=== PATIENT | male | born 1955 | race Caucasian/White ===

== ENCOUNTER 2018-01-23 14:33 | Emergency (ER) | payer SELFPAY ==
[~2018-01-23] VITALS: Ht 180.3 cm; Wt 95.0 kg
[2018-01-23 14:38] VITALS: BP 134/71; PULSE 89; RESP 21; TEMP 98.1; O2SAT 99
--- NOTE | 2018-01-23 16:07 | RADRPT ---
EXAM DATE/TIME: 01/23/2018 15:25 [place] COMPARISON: No previous studies available for comparison. INDICATIONS : Cough MEDICAL HISTORY : None. SURGICAL HISTORY : None. ENCOUNTER: Initial ACUITY: 1 day PAIN SCORE: 0/10 LOCATION: chest FINDINGS: AP and lateral views of the chest demonstrate the lungs to be symmetrically aerated without evidence of mass, infiltrate or effusion. The cardiomediastinal contours are unremarkable. Osseous structure s are intact. CONCLUSION: No acute disease. Lenin Díaz MD on January 23, 2018 at 16:05 Board Certified Radiologist. This report was verified electronically.
--- NOTE | 2018-01-23 16:33 | PD ---
HPI Chief Complaint: Respiratory Symptoms Time Seen by Provider: 16:30 Travel History International Travel<30 days: No Contact w/Intl Traveler<30days: No Traveled to known affect area: No History of Present Illness HPI 62-year-old male presents to the emergency department with complaint of productive cough with green sputum production, nasal congestion, chest tightness , wheezing, and a little bit of shortness of breath 1 week. Denies sore throat , ear pain. Denies chest pain, fevers, vomiting. Denies hemoptysis. Has been taking Mucinex, [id number] cold and flu medication, and TheraFlu for symptom management. No known aggravating or relieving factors. Symptoms are mild to moderate in severity. Others in his house are sick with similar symptoms. No known allergies. No primary care provider. Denies significant past medical history. Has no other medical complaints. No other modifying factors or associated signs and symptoms. PFSH Social History Tobacco Use: Yes Allergies-Medications (Allergen,Severity, Reaction): Coded Allergies: No Known Allergies (Verified Allergy, Unknown, 01/23/18) Reported Meds & Prescriptions Reported Meds & Active Scripts Active Azithromycin 500 Mg Tab 500 Mg PO DAILY Deltasone (Prednisone) 20 Mg Tab 40 Mg PO DAILY 4 Days START 01/24/2018 Ventolin Hfa 18 GM Inh (Albuterol Sulfate) 90 Mcg/Act Aer 2 Puff INH Q4-6H PRN Tessalon Perles (Benzonatate) 100 Mg Cap 100 Mg PO TID PRN 3 Days Review of Systems Except as stated in HPI: all other systems reviewed are Neg Physical Exam Narrative GENERAL: Well-nourished, well-developed male patient, in no acute distress; afebrile, nontoxic-appearing SKIN: Warm and dry. HEAD: Atraumatic. Normocephalic. EYES: Pupils equal and round. No scleral icterus. No injection or drainage. ENT: Mucosa pink and moist. No erythema or exudates. No uvular edema. No uvular , palatal, or tonsillar deviation. Airway patent. Nares without nasal blood, purulent drainage or septal hematoma. EARS: Bilateral pinnae and external canals appear within normal limits. Bilateral tympanic membranes without erythema, dullness or perforation. NECK: Trachea midline. No lymphadenopathy. CARDIOVASCULAR: Regular rate and rhythm. No murmur appreciated. RESPIRATORY: No accessory muscle use. Lungs with Wheezing throughout to auscultation. Breath sounds equal bilaterally. No retractions or tachypnea. No Audible wheezing noted. GASTROINTESTINAL: Abdomen soft, non-tender, nondistended. Hepatic and splenic margins not palpable. Bowel sounds are active 4 quadrants. MUSCULOSKELETAL: No obvious deformities. No clubbing. No cyanosis. No edema. NEUROLOGICAL: Awake and alert. Oriented 3. No obvious cranial nerve deficits. Motor grossly within normal limits. Normal speech. Moves all extremities. 5/5 strength to all extremities. PSYCHIATRIC: Appropriate mood and affect; insight and judgment normal. Data Data Last Documented VS Vital Signs Date Time Temp Pulse Resp B/P (MAP) Pulse Ox O2 Delivery O2 Flow Rate FiO2 01/23/18 16:24 16 98 Room Air 01/23/18 14:38 98.1 89 134/71 (92) Orders Orders Chest, Ap & Lat (01/23/18 ) Prednisone (Deltasone) (01/23/18 17:00) Albuterol-Ipratropium Neb (Duoneb Neb) (01/23/18 17:00) Ed Discharge Order (01/23/18 17:34) [facility] Medical Decision Making Medical Screen Exam Complete: Yes Emergency Medical Condition: Yes Medical Record Reviewed: Yes Differential Diagnosis Upper respiratory infection, influenza, pneumonia Narrative Course 62-year-old male physical exam and HPI consistent with acute bronchitis. Lungs with wheezing on auscultation throughout. Patient is in no acute distress without retractions or tachypnea. 1632: Chest x-ray concluded: Chest X-Ray 01/23/18 0000 Signed Impressions: Service Date/Time: Tuesday, January 23, 2018 15:25 - CONCLUSION: No acute disease. Lenin Díaz MD Chest x-ray findings discussed with the patient. DuoNeb, Deltasone ordered. 1734: On reexamination patient reports improvement in symptoms. Denies chest tightness or shortness breath. Lungs are clear and equal throughout. Deltasone , azithromycin, Ventolin inhaler, Tessalon Perles prescribed for home. Instructed patient to follow up with primary care provider. Patient verbalizes understanding and agreement with treatment plan. Patient is medically cleared and stable for discharge. Discussed reasons to return to the emergency department. Patient agrees with treatment plan. The patients vital signs are stable and the patient is stable for outpatient follow-up and treatment. Patient discharged home, stable and in no acute distress. Diagnosis Primary Impression: Bronchitis Referrals: Primary Care Physician Patient Instructions: Acute Bronchitis (ED), General Instructions Departure Forms: Tests/Procedures, Work Release Enter return to work date: Jan 24, 2018 Additional Instructions: Use Albuterol inhaler as prescribed Take oral steroids as prescribed and complete full course Use Tessalon Perles as prescribed to decrease coughing spasms [id number] decongestants or antihistamines as directed and as needed for symptom management Your cough can last 4-6 weeks Drink plenty of fluids to prevent dehydration Use hot air humidifier to decrease cough exacerbation Turn off ceiling fans and sleep with head of bed elevated Avoid triggers such as second hand smoke, dust, known allergens Follow-up with your primary care provider Return to the emergency department immediately with worsening of symptoms Med/Other Pt SpecificInfo: Prescription(s) given Scripts Azithromycin (Azithromycin) 500 Mg Tab 500 MG PO DAILY for Infection, #5 TAB 0 Refills Prov: Heidy DowdP 01/23/18 Prednisone (Deltasone) 20 Mg Tab 40 MG PO DAILY for 4 Days, #8 TAB 0 Refills START 01/24/2018 Prov: Heidy DowdP 01/23/18 Albuterol 18 GM Inh (Ventolin Hfa 18 GM Inh) 90 Mcg/Act Aer 2 PUFF INH Q4-6H Y for SOB/WHEEZING, #1 INHALER 0 Refills Prov: Heidy DowdP 01/23/18 Benzonatate (Tessalon Perles) 100 Mg Cap 100 MG PO TID Y for COUGH for 3 Days, CAP 0 Refills Prov: Heidy DowdP 01/23/18 Disposition: 01 DISCHARGE HOME Condition: Stable Heidy Dowd Jan 23, 2018 16:33
[2018-01-23] MEDS ORDERED: VENTAER INH (16:50)
[2018-01-23] MEDS ORDERED: PRED-503 PO (16:50)
[2018-01-23] MEDS ORDERED: BENZ100 PO (16:50)
[2018-01-23] MEDS ORDERED: AZIT500T2 PO (16:50)
[2018-01-23] MEDS ORDERED: RESP: ALBUTEROL 2.5 MG/IPRATROPIUM 0.5 MG NEB (SCH) INH ONE (17:00)
[2018-01-23] MEDS ORDERED: predniSONE 20 MG TAB PO ONE (17:00)
== END 2018-01-23 17:34 | disposition home or self-care (01) ==
LOC: NEPD 14:33
DX: J40 Bronchitis, not specified as acute or chronic (principal); Z72.0 Tobacco use
CPT/HCPCS: 71046; 94664; 99283; J7512